=== PATIENT | male | born 1995 | race African-American/Black ===

== ENCOUNTER 2018-09-06 01:20 | Emergency (ER) | payer BC, SELFPAY ==
[2018-09-06] MEDS ORDERED: Morphine 4 MG/ML VIAL ONE ×2 (01:33→02:34)
[2018-09-06] MEDS ORDERED: Adacel (T-DAP) 0.5 ML SYRINGE ONE (01:34)
[2018-09-06] MEDS ORDERED: Ondansetron PF 4 MG/2 ML Vial ONE (01:34)
[2018-09-06] MEDS ORDERED: cefTRIAXone\\ROCEPHIN 2 GM in Sodium Chloride 0.9% 100 ML IVPB SCH (01:45)
--- NOTE | 2018-09-06 07:50 | RAD ---
Exam: XR Hand Lt 3 View STANDARD HISTORY: Trauma to left hand COMPARISON: None FINDINGS: There is soft tissue defect seen involving the base of the left index finger as well as subcutaneous soft tissues medial to the left thumb with associated subcutaneous emphysema as well as subcutaneous soft tissue swelling. No acute fracture, dislocation, or other acute osseous abnormality is identified. IMPRESSION: Soft tissue injury with soft tissue defects and subcutaneous emphysema. No fracture or radiopaque for eign body is identified.
== END 2018-09-06 03:27 | disposition short-term general hospital (02) ==
LOC: ERS 01:20
DX: S61.412A Laceration without foreign body of left hand, initial encounter (principal); J45.909 Unspecified asthma, uncomplicated; W22.8XXA Striking against or struck by other objects, initial encounter
CPT/HCPCS: 90471; 90715; 96361; 96365; 96375; 96376; J0696; J2270; J2405; J3490

== ENCOUNTER 2019-06-09 15:12 | Emergency (ER) | payer BC ==
[2019-06-09] MEDS ORDERED: Ketorolac Tromethamine 30 MG/ML VIAL ONE (16:18)
--- NOTE | 2019-06-09 16:55 | RAD ---
Exam:4 views left knee HISTORY: Pain. Trauma. Injury. COMPARISON: 12/26/2010 FINDINGS: Preserved joint spaces. No joint effusion. Displaced cortical fragment involving the medial femoral condyle. IMPRESSION: Medial femoral condylar fracture. MRI may be beneficial to assess for associated internal derangement.
== END 2019-06-09 17:15 | disposition home or self-care (01) ==
LOC: ERS 15:12
DX: S86.912A Strain of unspecified muscle(s) and tendon(s) at lower leg level, left leg, initial encounter (principal); M23.92 Unspecified internal derangement of left knee; J45.909 Unspecified asthma, uncomplicated; X58.XXXA Exposure to other specified factors, initial encounter
CPT/HCPCS: 96372; J1885

== ENCOUNTER 2023-01-09 22:33 | Emergency (ER) | payer BC, SELFPAY ==
[2023-01-09] MEDS ORDERED: Dexamethasone 10 MG/ML VIAL ONE (23:11)
[2023-01-09] MEDS ORDERED: Albuterol 200 PUFF (6.7GM INHALER) ONE (23:11)
== END 2023-01-10 00:08 | disposition home or self-care (01) ==
LOC: ERS 22:33
DX: R07.89 Other chest pain (principal); J45.901 Unspecified asthma with (acute) exacerbation
CPT/HCPCS: 71045; 93005; J1100

== ENCOUNTER 2024-01-09 10:24 | Emergency (ER) | payer SELFPAY ==
[2024-01-09] MEDS ORDERED: Iopamidol-370 76% 500 ML MDV (1 ML CHARGE) ONE (10:27)
[2024-01-09] MEDS ORDERED: fentaNYL 50 mcg/mL 1 mL Vial ONE (10:28)
[2024-01-09] MEDS ORDERED: NOREPINEPHRINE 8 MG/250 ML-D5W 250 ML ONE (10:31)
[2024-01-09] MEDS ORDERED: Rocuronium Bromide 10 MG/ML (10ML VIAL) ONE (10:56)
[2024-01-09] MEDS ORDERED: Etomidate 40 MG (20 mL) VIAL ONE (10:56)
[2024-01-09] MEDS ORDERED: Boostrix 0.5 ML (Tdap) VIAL (>/=7 yrs of age) ONE (10:59)
[2024-01-09] MEDS ORDERED: Propofol 1,000 MG/100 ML VIAL IV ONE (11:00)
[2024-01-09 11:04] LABS: #Basophils 0.08 10x3/uL (0.0-0.2); %Basophils 0.6 % (0.0-1.0); %Eosinophils 1.6 % (0.0-10.0); %Lymphocytes 25.3 % (21.0-51.0); %Neutrophils 65.8 % (42.0-75.0); Hematocrit 34.4 % (42.0-52.0); Mean Corpuscular Hemoglobin 29.7 pg (27.0-31.0); Mean Platelet Volume 9.4 fL (7.4-10.4); Platelet Count 210 10x3/uL (130-400)
[2024-01-09 11:20] LABS: Alcohol Less than 10.0 mg/dL (Less than 10)
[2024-01-09 11:20] LABS: INR-International Normal Ratio 1.3; PTT 24.2 sec (22.9-36.1)
[2024-01-09 11:22] LABS: Actual Bicarbonate (HCO3a) 20.5 mEq/L (22-28); Analyzer IN Cardio ER; Base Excess (BEa) -3.9 mEq/L (-2.0 to +3.0); CO2 Tension 35.1 mmHg (35.0-45.0); Calcium, Ionized (arterial) 1.08 mmol/L (1.12-1.30); Carboxyhemoglobin (COHb) 0.1 gm% (0.0-3.0); Hematocrit-ABG 35 % (42.0-52.0); Hemoglobin (Hb) 11.8 g/dL (14.0-18.0); O2 Tension (PaO2), arterial 252.4 mmHg (80.0-100.0); pH, Arterial 7.384 (7.35-7.45)
[2024-01-09 11:23] LABS: ALT (SGPT) 10 U/L (8-55); AST (SGOT) 24 U/L (5-34); Albumin 2.9 g/dL (3.5-5.0); Alkaline Phosphatase 34 U/L (40-110); Anion Gap 13 mmol/L (10-20); BUN (Urea Nitrogen) 21 mg/dL (8.9-20.6); Bilirubin, Total 0.5 mg/dL (0.2-1.2); Calc. Creatinine Clearance 0 mL/min (70-130); Calcium 7.4 mg/dL (7.8-10.44); Carbon Dioxide 19 mmol/L (22-29); Chloride 110 mmol/L (98-107); Estimated GFR 100; Globulin 2.2 g/dL (2.4-3.5); Glucose 161 mg/dL (70-105); Lipase 17 U/L (8-78); Potassium 3.5 mmol/L (3.5-5.1); Protein, Total 5.1 g/dL (6.0-8.3); Sodium 138 mmol/L (136-145)
[2024-01-09 11:28] LABS: ALV-art Gradient 60.225 mmHg (0-20); Puncture Site Left Radial artery
[2024-01-09 11:30] LABS: Troponin I Less than 0.010 ng/mL (< 0.028)
[2024-01-09 11:34] LABS: Amphetamine Not Detected (NotDetected); Barbiturates Screen Not Detected (NotDetected); Benzodiazepine Screen Not Detected (NotDetected); Cocaine Metabolite Screen Not Detected (NotDetected); Methadone Not Detected (NotDetected); Methamphetamine Not Detected (NotDetected); Opiate Screen Not Detected (NotDetected); Oxycodone Screen Not Detected (NotDetected); Phencyclidine (PCP) Not Detected (NotDetected); THC/Cannabinoid Screen Not Detected (NotDetected); Tricyclic Screen Not Detected (NotDetected)
[2024-01-09 11:41] LABS: Bacteria/HPF None Seen HPF (None Seen); Bilirubin Negative (Negative); Blood, Urine Negative (Negative); CAUTI Indications for Culture Urological Procedure; Clarity Clear (Clear); Glucose, Urine (Dipstick) 30 mg/dL (Negative); Ketone, Urine Trace mg/dL (Negative); Leukocyte Negative Leu/uL (Negative); Nitrite Negative (Negative); Protein, Urine (Dipstick) 70 mg/dL (Neg-Trace); Squamous Epithelial 0-3 HPF (0-3); Urobilinogen Normal mg/dL (Less than 2)
[2024-01-09 11:44] LABS: Urine Culture Reflex No No; Urine Culture Reflex Yes Yes
== END 2024-01-09 12:00 | disposition short-term general hospital (02) ==
LOC: EEVIPCON 10:24 → ERS 10:24
DX: S02.69XA Fracture of mandible of other specified site, initial encounter for closed fracture (principal); S01.431A Puncture wound without foreign body of right cheek and temporomandibular area, initial encounter; S81.831A Puncture wound without foreign body, right lower leg, initial encounter; X95.9XXA Assault by unspecified firearm discharge, initial encounter; Y93.89 Activity, other specified; Z23 Encounter for immunization
CPT/HCPCS: 31500; 36415; 36600; 51702; 70450; 70486; 71045; 72125; 80053; 80306; 80307; 81001; 82805; 83605; 83690; 84484; 85025; 85610; 85730; 86850; 86900; 86901; 87086; 90471; 90715; 93005; 94002; 94760; 96374; 99152; G0390; J2704; J3010; Q9967